=== PATIENT | male | born 1995 | race Caucasian/White ===

== ENCOUNTER 2019-01-19 21:15 | Emergency (ER) | payer SELFPAY ==
[2019-01-19] MEDS ORDERED: KETOROLAC 30 MG/ML VIAL IVP ONE (21:38)
[2019-01-19] MEDS ORDERED: 0.9 % SODIUM CHLORIDE 1,000 ML BAG IV ONE (21:39)
--- NOTE | 2019-01-19 21:42 | Emergency Department Record ---
History of Present Illness - General Chief Complaint: Abdominal Pain Stated Complaint: ABDOMINAL PAIN Time Seen by Provider: 01/19/19 21:38 Source: Patient, Family Mode of Arrival: Ambulatory Limitations: No limitations - History of Present Illness Initial Comments: 23 yo male presents with two days of lower abdominal pain. The pain is midline and to the right. He has not had any fever. No vomiting. He had one episode of diarrhea. The pain is fairly constant. It is noticeable with palpation. No dysuria. No abdominal surgery history. MD Complaint: Abdominal pain -: Days(s) (2) Location: Suprapubic, RUQ Radiation: Suprapubic, RUQ Migration to: Suprapubic, RUQ Quality: Aching Consistency: Constant Improves With: Rest Worsens With: Movement Context: Other Associated Symptoms: Anorexia - Related Data Home Medications Medication Instructions Recorded Confirmed Last Taken No Home Med [NO HOME MEDS] 01/19/19 01/19/19 Unknown Allergies Allergy/AdvReac Type Severity Reaction Status Date / Time No Known Drug Allergies Allergy Verified 01/19/19 21:40 Review of Systems Constitutional: Denies: Chills, Fever, Malaise, Weakness Eyes: Denies: Eye discharge ENT: Denies: Congestion, Throat pain Respiratory: Denies: Cough, Dyspnea Cardiovascular: Denies: Chest pain, Syncope Endocrine: Denies: Fatigue Gastrointestinal: Reports: Abdominal pain, Diarrhea, Nausea. Denies: Vomiting Genitourinary: Denies: Dysuria, Frequency, Hematuria Musculoskeletal: Denies: Arthralgia, Back pain, Myalgia Skin: Denies: Bruising, Change in color, Rash Neurological: Denies: Headache Psychiatric: Denies: Anxiety Hematological/Lymphatic: Denies: Easy bleeding, Easy bruising Physical Exam - General General Appearance: Alert, Oriented x3, Cooperative, No acute distress Limitations: No limitations - Head Head exam: Atraumatic, Normal inspection - Eye Eye exam: Normal appearance, PERRL. negative: Conjunctival injection, Scleral icterus - ENT ENT exam: Normal exam Ear exam: Normal external inspection Nasal Exam: Normal inspection Mouth exam: Normal external inspection - Neck Neck exam: Normal inspection - Respiratory Respiratory exam: Normal lung sounds bilaterally. negative: Respiratory distress - Cardiovascular Cardiovascular Exam: Regular rate, Normal rhythm, Normal heart sounds - GI/Abdominal GI/Abdominal exam: Soft, Tenderness (tender suprapubic and RLQ). negative: Distended, Guarding - Rectal Rectal exam: Deferred - exam: Deferred - Extremities Extremities exam: Normal inspection. negative: Tenderness - Back Back exam: Denies: CVA tenderness (R), CVA tenderness (L) - Neurological Neurological exam: Alert, Oriented X3 - Psychiatric Psychiatric exam: Normal affect, Normal mood - Skin Skin exam: Dry, Intact, Normal color, Warm Course Vital Signs 01/19/19 21:34 Temperature 98.3 F Pulse Rate [ 57 L Pulse Ox Probe] Respiratory 20 Rate Blood Pressure 140/69 [Left Arm] Pulse Ox 99 - Reevaluation(s) Reevaluation #1: The labs were reviewed No acute changes on the CBC, CMP, Lipase or UA 01/19/19 22:17 01/19/19 23:[address] scan of the abdomen was negative for acute process We discussed the results Very low suspicion for acute issue currently. We discussed home care, recheck in the ED if worse and immediate return if fever, vomiting, or new concerns Medical Decision Making - Lab Data Result diagrams: 01/19/19 21:47 01/19/19 21:47 Disposition Disposition: Discharge Clinical Impression: Abdominal pain Disposition: Home, Self-Care Condition: (1) Good Instructions: Abdominal Pain (ED) Additional Instructions: Call your doctor for the next available follow up appointment this week if any symptoms continue Return to the ER for a recheck if worse, any new concerns or questions. Immediate return if you have fever or uncontrolled pain or vomiting Review this ER visit and the tests performed with your family doctor Forms: Patient Portal Access Time of Disposition: 23:11 Quality - Quality Measures Quality Measures: N/A - Blood Pressure Screening Does Patient Have Any of the Following: No Blood Pressure Classification: Pre-Hypertensive BP Reading Systolic Measurement: 123 Diastolic Measurement: 74 Screening for High Blood Pressure: < Pre-Hypertensive BP, F/U Documented > [ G8950] Pre-Hypertensive Follow-up Interventions: Referral to alternative/primary care provider.
[2019-01-19 21:55] LABS: BASO % 0.3 % (0-6); EOS % 4.1 % (0-6); GRAN % 60.5 % (47-80); HEMATOCRIT 42.7 % (42.0-52.0); HEMOGLOBIN 13.9 gm/dl (14.0-18.0); LYMPH % 26.7 % (16-45); MEAN CELL VOLUME 100.7 fl (81-97); MEAN CORPUSCULAR HGB CONC 32.6 g/dl (32-36); MEAN PLATELET VOLUME 10.2 fl (7.4-10.4); MONO % 8.4 % (0-9); PLATELET COUNT 330 K/uL (130-400); RED BLOOD COUNT 4.24 M/uL (4.40-5.70); RED CELL DISTRIBUTION WIDTH 12.5 % (11.5-14.5); WHITE BLOOD COUNT W/O DIFF 7.8 K/uL (4.2-12.2)
[2019-01-19 21:56] LABS: MEAN CORPUSCULAR HEMOGLOBIN 32.7 pg (27-33)
[2019-01-19 21:58] LABS: URINE APPEARANCE CLEAR; URINE BILIRUBIN NEGATIVE (NEGATIVE); URINE COLOR YELLOW; URINE GLUCOSE (UA) NEGATIVE (NEGATIVE); URINE KETONE NEGATIVE (NEGATIVE); URINE LEUKOCYTE ESTERASE NEGATIVE (NEGATIVE); URINE NITRITE NEGATIVE (NEGATIVE); URINE PROTEIN NEGATIVE (NEGATIVE); URINE UROBILINOGEN 0.2 E.U./dL (0.20 - 1.00)
[2019-01-19 22:02] LABS: URINE BLOOD NEGATIVE (NEGATIVE)
[2019-01-19 22:03] LABS: BLOOD UREA NITROGEN 9 mg/dL (6-20); CREATININE 0.8 mg/dL (0.7-1.2); EST GLOMERULAR FILTRATION RATE > 60 mL/min
[2019-01-19 22:04] LABS: LIPASE 20 U/L (13-60)
[2019-01-19 22:06] LABS: GLUCOSE,RANDOM 108 mg/dL (74-109)
[2019-01-19 22:08] LABS: ALT/SGPT 30 U/L (<41)
[2019-01-19 22:09] LABS: ALB/GLOB RATIO 1.8 (1.1-1.8); ALBUMIN 4.5 g/dL (4.0-5.0); ALKALINE PHOSPHATASE 77 U/L (40-129); AST/SGOT 22 U/L (10.0-50.0)
--- NOTE | 2019-01-21 10:45 | CT SCAN REPORT ---
EXAM: CT SCAN OF THE ABDOMEN AND PELVIS HISTORY: PATIENT HAS LOWER ABDOMINAL PAIN. TECHNIQUE: Serial axial CT scan of the abdomen and pelvis was performed at 2.5 mm intervals from the dome of the diaphragm down to the symphysis pubis following the intravenous administration of 100 ml of Omnipaque 300. No comparison CT's are available. FINDINGS: The lung windows of the lung bases demonstrate no CT evidence of a focal infiltrate or pleural effusion. The visualized heart size and contour is within normal limits. The liver, spleen, pancreas, bilateral adrenal glands, and gallbladder are unremarkable. There is no CT evidence of hydronephrosis or hydroureter. There is an 8.4 mm Bosniak Type 1 cyst within the mid pole of the right kidney. The contour, caliber, and flow within the abdominal aorta is within normal limits. There is no CT evidence of retroperitoneal, pelvic, or inguinal lymphadenopathy. The bowel gas pattern is nonspecific and nonobstructive. The appendix is clearly visualized and there is no CT evidence of appendicitis. There is no CT evidence of free intraperitoneal fluid or free intraperitoneal air. The urinary bladder is decompressed. Bone windows demonstrate no CT evidence of an acute fracture or dislocation of the visualized osseous structures. IMPRESSION: NO CT EVIDENCE OF AN ACUTE INTRAABDOMINAL PROCESS. JOB NUMBER: [id number] [facility]
== END 2019-01-19 23:24 | disposition home or self-care (01) ==
LOC: ER 21:15
DX: R10.31 Right lower quadrant pain (principal); R19.7 Diarrhea, unspecified; R51 Headache; F17.210 Nicotine dependence, cigarettes, uncomplicated
CPT/HCPCS: 99284 ×2; 96374; 83690; 85025; 80053; 81003; 74177; Q9967; J1885; J7030

== ENCOUNTER 2019-01-23 11:15 | Emergency (ER) | payer SELFPAY ==
[2019-01-23] MEDS ORDERED: 0.9 % SODIUM CHLORIDE 1,000 ML BAG IV ONE (12:03)
--- NOTE | 2019-01-23 12:08 | Emergency Department Record ---
History of Present Illness - General Chief Complaint: Shortness of breath Stated Complaint: SOB, CHEST PAIN Time Seen by Provider: 01/23/19 11:48 Source: Patient Mode of Arrival: Ambulatory Limitations: No limitations - History of Present Illness Initial Comments: The patient is here due to a 2 month hx of anterior CP. It is an intermittent throbbing pain that comes and goes. It is not radiating and is NOT associated with SOB, MALIK, sweating or nausea. The pain is worse with movement and lifting and bending and is NOT exertional in nature. The patient felt lightheaded today with it for the first time so he decided to come to the ER. His only cardiac risk factor is short term tobacco use. MD Complaint: Chest pain Onset/Timin -: Month(s) Radiation: Other Severity: Mild Severity scale (1-10): 2 Quality: Throbbing Improves With: Nothing Worsens With: Coughing, Movement Treatments Prior to Arrival: None - Related Data Home Oxygen Therapy: No Previous Rx's Medication Instructions Recorded Naproxen [Naprosyn] 500 mg PO BID #14 tablet. 01/23/19 Allergies Allergy/AdvReac Type Severity Reaction Status Date / Time No Known Drug Allergies Allergy Verified 01/23/19 11:40 Travel Screening - Travel/Exposure Within Last 30 Days Have you traveled within the last 30 days?: No - Travel/Exposure Within Last Year Have you traveled outside the [place] in the last year?: No - Additonal Travel Details Have you been exposed to anyone with a communicable illness?: No - Travel Symptoms Symptom Screening: None Review of Systems Constitutional: Denies: Chills, Fever Eyes: Denies: Eye discharge ENT: Denies: Congestion, Throat pain Respiratory: Denies: Dyspnea Past Medical History - SOCIAL HISTORY Smoking Status: Current every day smoker Alcohol Use: Rare Drug Use: None - RESPIRATORY Hx Respiratory Disorders: No - CARDIOVASCULAR Hx Cardio Disorders: No - NEURO Hx Neuro Disorders: No - GI Hx GI Disorders: No - Hx Genitourinary Disorders: No - ENDOCRINE Hx Endocrine Disorders: No - MUSCULOSKELETAL Hx Musculoskeletal Disorders: Yes Hx Back Injury: Yes - PSYCH Hx Psych Problems: No - HEMATOLOGY/ONCOLOGY Hx Hematology/Oncology Disorders: No Family Medical History Any Significant Family History?: No Family Hx Comment (NOT TO BE USED IN PLACE OF ITEMS BELOW): pt does not known Physical Exam - General General Appearance: Alert, Oriented x3, Cooperative, No acute distress - Head Head exam: Atraumatic, Normocephalic, Normal inspection - Eye Eye exam: Normal appearance, PERRL - ENT Throat exam: Normal inspection. negative: Tonsillar erythema, Tonsillar exudate - Neck Neck exam: Normal inspection, Full ROM. negative: Tenderness - Respiratory Respiratory exam: Normal lung sounds bilaterally, Chest wall tenderness (The anterior CP is 100% reproducible to palpation of the anterior chest wall.). negative: Accessory muscle use, Respiratory distress, Rhonchi - Cardiovascular Cardiovascular Exam: Regular rate, Normal rhythm, Normal heart sounds - GI/Abdominal GI/Abdominal exam: Soft, Normal bowel sounds. negative: Tenderness - Extremities Extremities exam: Normal inspection, Full ROM, Normal capillary refill. negative: Tenderness - Neurological Neurological exam: Alert. negative: Motor sensory deficit Course Vital Signs 01/23/19 11:40 Temperature 98.3 F Pulse Rate 60 Respiratory 18 Rate Pulse Ox 98 - Reevaluation(s) Reevaluation #1: The patient is doing much better at this time. He is up walking and no longer lightheaded and states the pain has resolved. The patient now is very adamant that he would like to leave. I did discuss the fact that his workup has been very normal. He is to see his PCP for recheck next week. 01/23/19 13:32 Medical Decision Making - Data Complexity MDM Data: Labs Ordered and/or Reviewed, X-Ray Ordered and/or Reviewed, EKG Ordered and/or Reviewed - Lab Data Result diagrams: 01/23/19 12:08 01/23/19 12:08 - EKG Data -: EKG Interpreted by Me EKG: No Acute Changes, Normal EKG - Radiology Data Radiology results: Report reviewed (CXR: Neg per Rad.) Disposition Disposition: Discharge Clinical Impression: Chest wall pain Disposition: Home, Self-Care Condition: (2) Stable Instructions: Chest Wall Pain (ED) Additional Instructions: Please take the Naprosyn for pain and please see your family doctor next week for recheck. Return to the ER for any worsening symptoms. Prescriptions: Naproxen [Naprosyn] 500 mg PO BID #14 tablet.dr Forms: Patient Portal Access Time of Disposition: 13:35 Quality - Quality Measures Quality Measures: N/A - Blood Pressure Screening View Details: Yes Does Patient Have Any of the Following: No Blood Pressure Classification: Pre-Hypertensive BP Reading Systolic Measurement: 118 Diastolic Measurement: 82 Screening for High Blood Pressure: < Pre-Hypertensive BP, F/U Documented > [ G8950] Pre-Hypertensive Follow-up Interventions: Referral to alternative/primary care provider.
[2019-01-23 12:17] LABS: BASO % 0.3 % (0-6); EOS % 4.2 % (0-6); GRAN % 60.9 % (47-80); HEMATOCRIT 43.8 % (42.0-52.0); HEMOGLOBIN 14.5 gm/dl (14.0-18.0); LYMPH % 26.6 % (16-45); MEAN CELL VOLUME 99.8 fl (81-97); MEAN CORPUSCULAR HGB CONC 33.1 g/dl (32-36); MEAN PLATELET VOLUME 10.2 fl (7.4-10.4); PLATELET COUNT 306 K/uL (130-400); RED BLOOD COUNT 4.39 M/uL (4.40-5.70); RED CELL DISTRIBUTION WIDTH 12.5 % (11.5-14.5); WHITE BLOOD COUNT W/O DIFF 6.4 K/uL (4.2-12.2)
[2019-01-23 12:27] LABS: BLOOD UREA NITROGEN 9 mg/dL (6-20); CREATININE 0.7 mg/dL (0.7-1.2); EST GLOMERULAR FILTRATION RATE > 60 mL/min
[2019-01-23 12:28] LABS: TOTAL PROTEIN 6.9 g/dL (6.6-8.7)
[2019-01-23 12:30] LABS: GLUCOSE,RANDOM 93 mg/dL (74-109)
[2019-01-23 12:32] LABS: ALB/GLOB RATIO 1.8 (1.1-1.8); ALBUMIN 4.4 g/dL (4.0-5.0); ALT/SGPT 31 U/L (<41); AST/SGOT 22 U/L (10.0-50.0)
[2019-01-23 12:33] LABS: ALKALINE PHOSPHATASE 63 U/L (40-129); CREATINE PHOSPHOKINASE 231 U/L (39-308)
[2019-01-23 12:35] LABS: CKMB 2.1 ng/mL (<6.73)
[2019-01-23] MEDS ORDERED: KETOROLAC 30 MG/ML VIAL IVP ONE (13:07)
--- NOTE | 2019-01-26 11:57 | RADIOLOGY REPORT ---
EXAM: CHEST 2 VIEWS HISTORY: LEFT-SIDED CHEST PAIN FOR ONE MONTH. NO KNOWN INJURY. TECHNIQUE: Upright PA and lateral views of the chest. COMPARISON: CT abdomen with contrast dated 01/19/2019. FINDINGS: The cardiomediastinal silhouette is normal in size and configuration. The pulmonary vasculature is nondilated. The lungs are symmetrically inflated. No abnormal lung parenchymal opacity. No costophrenic angle blunting or pneumothorax. No acute osseous abnormality. IMPRESSION: NO RADIOGRAPHIC EVIDENCE OF ACUTE CARDIOPULMONARY DISEASE. JOB NUMBER: [id number] [facility]
== END 2019-01-23 13:44 | disposition home or self-care (01) ==
LOC: ER 11:15
DX: R07.89 Other chest pain (principal); R06.02 Shortness of breath; R42 Dizziness and giddiness; F17.210 Nicotine dependence, cigarettes, uncomplicated
CPT/HCPCS: 71046; 80053; 82550; 82553; 84484; 85025; 85651; 86140; 93005; 93010; 99284

== ENCOUNTER 2019-03-23 20:00 | Emergency (ER) | payer SELFPAY ==
[2019-03-23] MEDS ORDERED: 0.9 % SODIUM CHLORIDE 1,000 ML BAG IV ONE (20:38)
[2019-03-23] MEDS ORDERED: MAGNESIUM HYDROXIDE/AL HYDROX 30 ML, LIDOCAINE VISC 2% 15ML 15 ML PO ONE ×2 (20:40)
[2019-03-23 20:49] LABS: ABSOLUTE NEUTROPHIL COUNT 5.12; BASO % 0.6 % (0-6); EOS % 3.9 % (0-6); GRAN % 56.8 % (47-80); HEMATOCRIT 43.2 % (42.0-52.0); HEMOGLOBIN 14.3 gm/dl (14.0-18.0); LYMPH % 30.1 % (16-45); MEAN CELL VOLUME 99.5 fl (81-97); MEAN CORPUSCULAR HEMOGLOBIN 32.9 pg (27-33); MEAN CORPUSCULAR HGB CONC 33.1 g/dl (32-36); MEAN PLATELET VOLUME 10.7 fl (7.4-10.4); MONO % 8.6 % (0-9); PLATELET COUNT 302 K/uL (130-400); RED BLOOD COUNT 4.34 M/uL (4.40-5.70)
[2019-03-23 21:02] LABS: BLOOD UREA NITROGEN 13 mg/dL (6-20); CREATININE 0.8 mg/dL (0.7-1.2); EST GLOMERULAR FILTRATION RATE > 60 mL/min; LIPASE 27 U/L (13-60); TOTAL PROTEIN 6.8 g/dL (6.6-8.7)
[2019-03-23 21:04] LABS: GLUCOSE,RANDOM 129 mg/dL (74-109)
[2019-03-23 21:07] LABS: ALBUMIN 4.5 g/dL (4.0-5.0); ALKALINE PHOSPHATASE 68 U/L (40-129); ALT/SGPT 18 U/L (<41); AST/SGOT 17 U/L (10.0-50.0)
[2019-03-23 21:08] LABS: BILIRUBIN,DIRECT < 0.2 mg/dL (0-0.3)
--- NOTE | 2019-03-23 21:12 | Emergency Department Record ---
History of Present Illness - General Chief Complaint: Abdominal Pain Stated Complaint: ABD PAIN Time Seen by Provider: 03/23/19 20:27 Source: Patient Mode of Arrival: Ambulatory Limitations: No limitations - History of Present Illness Initial Comments: pt has epigastric for 10 days. he has had diarrhea. tums help as well as peptobismol which he started today. his stool turned dark today after taking pepto bismol. he does take motrin . Complaint: Abdominal pain Onset/Timin -: Days(s) Location: Epigastric Radiation: Other Migration to: Other Severity: Moderate Severity scale (1-10): 6 Quality: Sharp Consistency: Constant, Getting worse Improves With: Medication Worsens With: Eating Associated Symptoms: Diarrhea, Nausea - Related Data Previous Rx's Medication Instructions Recorded Naproxen [Naprosyn] 500 mg PO BID #14 tablet. 01/23/19 Omeprazole [Prilosec] 20 mg PO DAILY #10 cap. 03/23/19 Allergies Allergy/AdvReac Type Severity Reaction Status Date / Time No Known Drug Allergies Allergy Verified 01/23/19 11:40 Travel Screening - Travel/Exposure Within Last 30 Days Have you traveled within the last 30 days?: No - Travel Symptoms Symptom Screening: None Review of Systems Reviewed: No additional complaints except as noted below Constitutional: Reports: As per HPI. Denies: Chills, Fever, Malaise, Night sweats, Weakness, Weight change Eyes: Reports: As per HPI. Denies: Eye discharge, Eye pain, Photophobia, Vision change ENT: Reports: As per HPI. Denies: Congestion, Dental pain, Ear pain, Epistaxis, Hearing loss, Throat pain Respiratory: Reports: As per HPI. Denies: Cough, Dyspnea, Hemoptysis, Stridor, Wheezes Cardiovascular: Reports: As per HPI. Denies: Arrhythmia, Chest pain, Dyspnea on exertion, Edema, Murmurs, Orthopnea, Palpitations, Paroxysmal nocturnal dyspnea, Rheumatic Fever, Syncope Endocrine: Reports: As per HPI. Denies: Fatigue, Heat or cold intolerance, Polydipsia, Polyuria Gastrointestinal: Reports: As per HPI. Denies: Abdominal pain, Constipation, Diarrhea, Hematemesis, Hematochezia, Melena, Nausea, Vomiting Genitourinary: Reports: As per HPI. Denies: Dysuria, Frequency, Hematuria, Incontinence, Retention, Testicular pain, Testicular mass, Urgency Musculoskeletal: Reports: As per HPI. Denies: Arthralgia, Back pain, Gout, Joint swelling, Myalgia, Neck pain Skin: Reports: As per HPI. Denies: Bruising, Change in color, Change in hair/nails, Lesions, Pruritus, Rash Neurological: Reports: As per HPI. Denies: Abnormal gait, Confusion, Headache, Numbness, Paresthesias, Seizure, Tingling, Tremors, Vertigo, Weakness Psychiatric: Reports: As per HPI. Denies: Anxiety, Auditory hallucinations, Depression, Homicidal thoughts, Suicidal thoughts, Visual hallucinations Hematological/Lymphatic: Reports: As per HPI. Denies: Anemia, Blood Clots, Easy bleeding, Easy bruising, Swollen glands Past Medical History - SOCIAL HISTORY Smoking Status: Current every day smoker Alcohol Use: None Drug Use: None - RESPIRATORY Hx Respiratory Disorders: No - CARDIOVASCULAR Hx Cardio Disorders: No - NEURO Hx Neuro Disorders: No - GI Hx GI Disorders: No - Hx Genitourinary Disorders: No - ENDOCRINE Hx Endocrine Disorders: No - MUSCULOSKELETAL Hx Musculoskeletal Disorders: Yes Hx Back Injury: Yes - PSYCH Hx Psych Problems: No - HEMATOLOGY/ONCOLOGY Hx Hematology/Oncology Disorders: No Family Medical History Any Significant Family History?: No Family Hx Comment (NOT TO BE USED IN PLACE OF ITEMS BELOW): pt does not known Physical Exam - General General Appearance: Alert, Oriented x3, Cooperative, Mild distress - Head Head exam: Normal inspection - Eye Eye exam: Normal appearance, PERRL, EOMI Pupils: Normal accommodation - ENT ENT exam: Normal exam, Mucous membranes moist, Normal external ear exam, Normal orophraynx Ear exam: Normal external inspection. negative: External canal tenderness Nasal Exam: Normal inspection. negative: Discharge, Sinus tenderness Mouth exam: Normal external inspection, Tongue normal Teeth exam: Normal inspection. negative: Dental caries Throat exam: Normal inspection. negative: Tonsillar erythema, Tonsillar exudate - Neck Neck exam: Normal inspection, Full ROM. negative: Tenderness - Respiratory Respiratory exam: Normal lung sounds bilaterally. negative: Respiratory distress - Cardiovascular Cardiovascular Exam: Regular rate, Normal rhythm, Normal heart sounds - GI/Abdominal GI/Abdominal exam: Soft, Normal bowel sounds, Tenderness - Rectal Rectal exam: Deferred - exam: Deferred - Extremities Extremities exam: Normal inspection, Full ROM, Normal capillary refill. negative: Tenderness - Back Back exam: Reports: Normal inspection, Full ROM. Denies: Muscle spasm, Rash noted, Tenderness - Neurological Neurological exam: Alert, CN II-XII intact, Normal gait, Oriented X3 - Psychiatric Psychiatric exam: Normal affect, Normal mood - Skin Skin exam: Dry, Intact, Normal color, Warm Course Vital Signs 03/23/19 20:08 Temperature 97.8 F Pulse Rate [ 68 Left] Respiratory 16 Rate Blood Pressure 159/75 [Left Arm] Pulse Ox 99 - Reevaluation(s) Reevaluation #1: 03/23/19 22:13 gi cocktail helped Reevaluation #2: 03/23/19 22:31 pt refuses rectal. pt told possibility of bleeding Medical Decision Making - Lab Data Result diagrams: 03/23/19 20:15 03/23/19 20:15 Lab Results 03/23/19 03/23/19 Range/Units 20:15 20:15 WBC 9.0 (4.2-12.2) K/uL RBC 4.34 L (4.40-5.70) M/uL Hgb 14.3 (14.0-18.0) gm/dl Hct 43.2 (42.0-52.0) % MCV 99.5 H (81-97) fl MCH 32.9 (27-33) pg MCHC 33.1 (32-36) g/dl RDW 12.0 (11.5-14.5) % Plt Count 302 (130-400) K/uL MPV 10.7 H (7.4-10.4) fl Gran % 56.8 (47-80) % Lymphocytes % 30.1 (16-45) % Monocytes % 8.6 (0-9) % Eosinophils % 3.9 (0-6) % Basophils % 0.6 (0-6) % Absolute Neutrophils 5.12 Sodium 141 (136-145) mmol/L Potassium 3.7 (3.4-4.5) mmol/L Chloride 105 (98-107) mmol/L Carbon Dioxide 23.0 (22-29) mmol/L Anion Gap 13.0 (7-16) BUN 13 (6-20) mg/dL Creatinine 0.8 (0.7-1.2) mg/dL Estimated GFR > 60 mL/min Calcium 9.4 (8.6-10.0) mg/dL Total Bilirubin 0.20 (0.2-1.0) mg/dL Total Protein 6.8 (6.6-8.7) g/dL Lipase 27 (13-60) U/L Disposition Disposition: Discharge Clinical Impression: Epigastric pain Disposition: Home, Self-Care Condition: (1) Good Instructions: Epigastric Pain (ED) Additional Instructions: follow up with GI doctor without fail. return sooner if worse. no motrin or alleve. avoud caffeine and pop. Prescriptions: Omeprazole [Prilosec] 20 mg PO DAILY #10 cap.dr Forms: Patient Portal Access Quality - Quality Measures Quality Measures: N/A - Blood Pressure Screening Does Patient Have Any of the Following: No Blood Pressure Classification: Normal BP Reading Systolic Measurement: 116 Diastolic Measurement: 66 Screening for High Blood Pressure: < Normal BP, F/U Not Required > [G8783]
[2019-03-23 21:18] LABS: URINE APPEARANCE CLEAR; URINE BILIRUBIN NEGATIVE (NEGATIVE); URINE BLOOD NEGATIVE (NEGATIVE); URINE COLOR YELLOW; URINE GLUCOSE (UA) NEGATIVE (NEGATIVE); URINE KETONE NEGATIVE (NEGATIVE); URINE LEUKOCYTE ESTERASE NEGATIVE (NEGATIVE); URINE NITRITE NEGATIVE (NEGATIVE); URINE PROTEIN NEGATIVE (NEGATIVE); URINE UROBILINOGEN 0.2 E.U./dL (0.20 - 1.00)
--- NOTE | 2019-03-26 16:19 | CT SCAN REPORT ---
EXAM: CT SCAN ABDOMEN/PELVIS WO CONTRAST HISTORY: WORSENING EPIGASTRIC PAIN, NAUSEA, TARRY BLACK STOOLS FOR TEN DAYS. TECHNIQUE: Axial CT scan of the abdomen and pelvis obtained without oral or IV contrast at the referring physician's request. COMPARISON: CT abdomen and pelvis 01/19/19. FINDINGS: No calcified gallstones are seen within the gallbladder. No intrarenal calculi or hydronephrosis identified on either side. No hydroureter is seen as well. As such, it is very difficult to follow the entire course of both ureters in their nondilated state throughout the retroperitoneum and pelvis but no definite ureteral calculus identified and no bladder calculus evident. Evaluation of the bowel and viscera extremely limited without oral or IV contrast. Given this limitation, no definite hepatic, splenic, adrenal, pancreatic, or renal mass identified. The small cyst in the right kidney noted on the prior postcontrast CT is very difficult to identify on the noncontrast CT today but is probably still present and unchanged. I believe the appendix is identified as a normal caliber structure with no definite appendicitis identified. The stomach is quite distended with apparent residual food. Some of this gastric content is somewhat hyperdense. No definite free intraperitoneal air or free intraperitoneal fluid identified. IMPRESSION: 1. NO DEFINITE URINARY TRACT CALCULI OR HYDRONEPHROSIS IDENTIFIED. 2. STOMACH QUITE DISTENDED WITH GASTRIC CONTENT. 3. APPENDIX APPEARS NEGATIVE. NO FREE AIR OR FREE FLUID EVIDENT. JOB NUMBER: [id number] [facility]
== END 2019-03-23 22:43 | disposition home or self-care (01) ==
LOC: ER 20:00
DX: R10.13 Epigastric pain (principal); R19.7 Diarrhea, unspecified; R11.0 Nausea; F17.210 Nicotine dependence, cigarettes, uncomplicated
CPT/HCPCS: 74176; 80048; 80076; 81003; 83690; 85025; 96360; 99284; J7030